=== PATIENT | female | born 1995 | race Caucasian/White ===

== ENCOUNTER → 2023-09-15 13:16 | Outpatient (REF) | payer OTHER, SELFPAY | LOC: PNTC 13:16 | PROVIDERS: ATTENDING PHYSICIAN Obstetrics & Gynecology | DX: O99.210 Obesity complicating pregnancy, unspecified trimester (principal) | CPT/HCPCS: 76811 ==

== ENCOUNTER → 2023-09-29 14:25 | Outpatient (REF) | payer OTHER, SELFPAY | LOC: PNTC 14:25 | PROVIDERS: ATTENDING PHYSICIAN Obstetrics & Gynecology | DX: O28.3 Abnormal ultrasonic finding on antenatal screening of mother (principal) | CPT/HCPCS: 76815 ==

== ENCOUNTER → 2023-12-15 13:57 | Outpatient (REF) | payer OTHER, SELFPAY | LOC: PNTC 13:57 | PROVIDERS: ATTENDING PHYSICIAN Obstetrics & Gynecology | DX: O99.210 Obesity complicating pregnancy, unspecified trimester (principal) | CPT/HCPCS: 76816 ==

== ENCOUNTER 2024-02-05 21:26 | Inpatient (IN) | payer OTHER, SELFPAY ==
[2024-02-05] MEDS: LR 1000 IV (21:45)
[2024-02-05 21:52] VITALS: BP 137/69; BMI 41.7
[2024-02-05 21:58] LABS: % Basophils 0.2 % (0-2); % Eosinophils 0.9 % (0-6); % Immature Granulocytes 0.5 % (0-0.5); % Lymphocytes 21.3 % (20.5-51.1); % Monocytes 8.4 % (1.7-9.3); % Neutrophils 68.7 % (42.2-75.2); Absolute Eosinophils 0.1 10^3/uL (0-0.7); Absolute Immature Granulocytes 0.1 10^3/uL (0-0.05); Absolute Lymphocytes 2.5 10^3/uL (1.2-3.4); Absolute Neutrophils 8.1 10^3/uL (1.4-6.5); Hematocrit 32.6 % (37.0-47.0); Hemoglobin 11.8 g/dL (12.0-16.0); Mean Corp Hgb Conc. 36.2 g/dL (33.0-37.0); Mean Corpuscular Hgb 30.2 pg (27.0-31.0); Mean Corpuscular Volume 83.4 fL (81.0-99.0); Mean Platelet Volume 10.2 fL (7.4-10.4); Nucleated Red Blood Cells % 0 %; Platelet Count 226 10^3/uL (130-400); Red Blood Cell Count 3.91 10^6/uL (4.20-5.40); Red Cell Dist. Width 13.1 % (11.5-14.5); White Blood Cell Count 11.8 10^3/uL (4.8-10.8)
[2024-02-05] MEDS: SUBLIMAZE 100 MCG EPIDURAL (22:28)
[2024-02-05] MEDS: FENTANYL/BUPIVACAINE 100 EPIDURAL (22:28)
[2024-02-06] MEDS: FENTANYL/BUPIVACAINE 100 EPIDURAL (06:06)
[2024-02-06] MEDS: PITOCIN 30 UNITS/NSS 500 ML IV (11:03)
[2024-02-06] MEDS: MOTRIN 600 MG PO ×2 (13:11→21:26)
[2024-02-07 05:19] LABS: Hematocrit 28.7 % (37.0-47.0); Hemoglobin 9.8 g/dL (12.0-16.0)
[2024-02-07] MEDS: FEOSOL 325 MG PO (08:26)
[2024-02-07] MEDS: MOTRIN 600 MG PO ×3 (08:26→20:17)
[2024-02-07] MEDS: SENOKOT-S 1 TABLET PO (08:26)
[2024-02-07] MEDS: TYLENOL 650 MG PO ×4 (08:27→22:18)
[2024-02-08] MEDS: MOTRIN 600 MG PO ×2 (03:13→09:03)
[2024-02-08] MEDS: TYLENOL 650 MG PO (09:03)
[2024-02-08] MEDS: SENOKOT-S 1 TABLET PO (09:03)
[2024-02-08] MEDS: FEOSOL 325 MG PO (09:03)
[2024-02-10 12:35] LABS: Syphilis/T. pallidum Ab Reflex Negative (Negative)
== END 2024-02-08 13:15 | disposition home or self-care (01) | DRG 807 ==
LOC: LDRP 21:26
PROVIDERS: Obstetrics & Gynecology; ADMITTING PHYSICIAN Obstetrics & Gynecology
PROC: 10907ZC Drainage of Amniotic Fluid, Therapeutic from Products of Conception, Via Natural or Artificial Opening (ICD-10-PCS; 2024-02-05)
PROC: 0UQMXZZ Repair Vulva, External Approach (ICD-10-PCS; 2024-02-06)
PROC: 10D07Z6 Extraction of Products of Conception, Vacuum, Via Natural or Artificial Opening (ICD-10-PCS; 2024-02-06)
PROC: 0HQ9XZZ Repair Perineum Skin, External Approach (ICD-10-PCS; 2024-02-06)
DX: O48.0 Post-term pregnancy (principal); Z37.0 Single live birth; Z3A.40 40 weeks gestation of pregnancy; O70.0 First degree perineal laceration during delivery; Z87.891 Personal history of nicotine dependence; G43.909 Migraine, unspecified, not intractable, without status migrainosus; O90.81 Anemia of the puerperium; D64.9 Anemia, unspecified
CPT/HCPCS: 36415; 85014; 85018; 85025; 86780; 86850; 86900; 86901